=== PATIENT | male | born 1960 | race Caucasian/White ===

== ENCOUNTER 2018-05-25 18:30 | Emergency (ER) | payer BC ==
--- NOTE | 2018-05-25 19:32 | ER Document Report ---
ED General - General Chief Complaint: Head Injury without LOC Stated Complaint: HEAD INJURY Time Seen by Provider: 05/25/18 19:17 TRAVEL OUTSIDE OF THE [place] IN LAST 30 DAYS: No - HPI Notes: Patient is a 57-year-old male that presents to the emergency department for chief complaint of head injury. 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 He is in town from a prolonged stay at [place]. Patient was walking down stairs and tried to get over a dog fence. He slipped and fell forward landing on the right side of his head on a wooden table. He denied any head injury. He states he has some mild pain on his right scalp but denies headache, vision changes, neck pain, numbness and weakness. He has not had any nausea or vomiting. He is not on anticoagulation. He is on immunosuppression medications. He denies any recent illness or fevers. Past Medical History: CLL Past Surgical History: Bone marrow transplant Social History: Denies drugs alcohol and tobacco Family History: Reviewed and noncontributory for presenting illness Allergies: Reviewed, see documented allergy list. REVIEW OF SYSTEMS: CONSTITUTIONAL : No fever No chills No diaphoresis No recent illness EENT: No vision changes No congestion No sore throat CARDIOVASCULAR: No chest pain No palpitations RESPIRATORY: No shortness of breath No cough No difficulty breathing GASTROINTESTINAL: No abdominal pain No nausea No vomiting No diarrhea GENITOURINARY: No dysuria No hematuria No difficulty urinating MUSCULOSKELETAL: No back pain No leg pain No arm pain SKIN: No rashes Scalp laceration LYMPHATIC: No swollen, enlarged glands. NEUROLOGICAL: No lightheadedness No headache No weakness No paresthesias PSYCHIATRIC: No anxiety No depression PHYSICAL EXAMINATION: Vital signs reviewed, nursing noted reviewed. GENERAL: Well-appearing, well-nourished and in no acute distress. HEAD: Left occipital cephalohematoma with overlying laceration, no bleeding, normocephalic. EYES: Eyes appear normal, extraocular movements intact, sclera anicteric, conjunctiva are normal. ENT: nares patent, oropharynx clear without exudates. Moist mucous membranes. NECK: No midline or paraspinal tenderness, normal range of motion, supple without lymphadenopathy LUNGS: Breath sounds clear to auscultation bilaterally and equal. No wheezes rales or rhonchi. HEART: Regular rate and rhythm without murmurs ABDOMEN: Soft, nontender, normoactive bowel sounds. No rebound, guarding, or rigidity. No masses appreciated. EXTREMITIES: Nontender, good range of motion, no pitting or edema. NEUROLOGICAL: No focal neurological deficits. Moves all extremities spontaneously Motor and sensory grossly intact on exam. PSYCH: Normal mood, normal affect. SKIN: Warm, Dry, normal turgor. 2 inch linear left occipital scalp laceration with no active bleeding, underlying cephalhematoma - Related Data Allergies/Adverse Reactions: Penicillins Allergy (Verified 05/25/18 19:18) Past Medical History - Social History Smoking Status: Never Smoker Family History: Reviewed & Not Pertinent Physical Exam - Vital signs Vitals: Temp Pulse Resp BP Pulse Ox 98.1 F 90 20 132/88 H 95 05/25/18 18:56 05/25/18 18:56 05/25/18 18:56 05/25/18 18:56 05/25/18 18:56 Course - Re-evaluation Re-evalutation: 05/25/18 19:59 Vitals reviewed. Nursing notes reviewed. Patient is Nexus criteria negative and not requiring imaging of his cervical spine. CT brain shows no acute intracranial bleeding or pathology. Patient's laceration was repaired with liana. He tolerated procedure well. Patient will follow-up for staple removal in the next 7-10 days with his primary care provider. Because of his i mmunosuppression I did admissions counselor him on signs of infection. Prophylactic antibiotics not indicated because of the vascularity in the scalp and how clean his wound appears with no foreign material. Patient and family in agreement with this plan of care. He was discharged home in stable condition. Head CT 05/25/18 19:23 IMPRESSION: No evidence of calvarial injury or intracranial hemorrhage. EVIDENCE OF ACUTE STROKE: NO. - Vital Signs Vital signs: Temp Pulse Resp BP Pulse Ox 98.1 F 90 20 132/88 H 95 05/25/18 18:56 05/25/18 18:56 05/25/18 18:56 05/25/18 18:56 05/25/18 18:56 Procedures - Laceration/Wound Repair Head Time completed: 19:57 Wound length (cm): 5 Wound's Depth, Shape: Linear Laceration pre-procedure: Sterile PPE donned, Sterile drapes applied, Shur-Clens applied Irrigated w/ Saline (mLs): 250 Wound Repaired With: Liana Number of Sutures: 3 Post-procedure wound care: Other - Bacitracin and bulky dressing applied Post-procedure NV exam normal: Yes Complications: No Discharge - Discharge Clinical Impression: Scalp laceration Qualifiers: Encounter type: initial encounter Qualified Code(s): S01.01XA - Laceration without foreign body of scalp, initial encounter Closed head injury Qualifiers: Encounter type: initial encounter Qualified Code(s): S09.90XA - Unspecified injury of head, initial encounter Condition: Stable Disposition: HOME, SELF-CARE Instructions: Head Injury Precautions ([facility]), Care of Stapled Wounds ([facility]) Additional Instructions: Please return to the emergency department if you have any worsening, or concern of your symptoms. Please return to the emergency department if you develop chest pain, difficulty breathing, severe abdominal pain, or ongoing vomiting. Please follow-up with your primary care physician in 2-3 days and any other recommended physicians. If prescribed, take all medications as directed. If you have any questions or concerns do not hesitate to return the emergency department for evaluation. Have your liana removed in 7-10 days
--- NOTE | 2018-05-25 19:46 | RADIOLOGY REPORT (SQ) ---
EXAM DESCRIPTION: CT HEAD WITHOUT COMPLETED DATE/TIME: 05/25/2018 7:33 pm REASON FOR STUDY: head injury COMPARISON: None. TECHNIQUE: Axial images acquired through the brain without intravenous contrast. Images reviewed wi th bone, brain and subdural windows. Additional sagittal and coronal reconstructions were generated. Images stored on PACS. All CT scanners at this facility use dose modulation, iterative reconstruction, and/or weight based d osing when appropriate to reduce radiation dose to as low as reasonably achievable (ALARA). [facility]: Dose Right [facility]: CareDose [facility]: Dose Right [facility]: Teradose 4D [facility]: Via [employer] RADIATION DOSE: CT Rad equipment meets quality standard of care and radiation dose reduction techniq ues were employed. CTDIvol: 53.2 mGy. DLP: 1044 mGy-cm. mGy. LIMITATIONS: None. FINDINGS: VENTRICLES: Normal size and contour. CEREBRUM: No masses. No hemorrhage. No midline shift. No evidence for acute infarction. Normal gra y/white matter differentiation. No areas of low density in the white matter. CEREBELLUM: No masses. No hemorrhage. No alteration of density. No evidence for acute infarction. EXTRAAXIAL SPACES: No fluid collections. No masses. ORBITS AND GLOBE: No intra- or extraconal masses. Normal contour of globe without masses. CALVARIUM: No fracture. PARANASAL SINUSES: No fluid or mucosal thickening. SOFT TISSUES: No mass or hematoma. OTHER: Surgical clips are seen at the skull base. IMPRESSION: No evidence of calvarial injury or intracranial hemorrhage. EVIDENCE OF ACUTE STROKE: NO. COMMENT: Quality ID # [id number]: Final reports with documentation of one or more dose reduction techniques (e.g., Automated exposure control, adjustment of the mA and/or kV according to patient size, use of iterative reconstruction technique) TECHNICAL DOCUMENTATION: JOB ID: [id number] [email or web address]- All Rights Reserved Reading location - IP/workstation name: [email or web address]
[2018-05-25] MEDS ORDERED: BACITRACIN ZINC OINTMENT 15 GM TP ONE (19:56)
[2018-05-25] MEDS ORDERED: IBUPROFEN 600 MG TABLET PO ONE (19:56)
[2018-05-25 20:22] VITALS: BP 135/79
== END 2018-05-25 21:00 | disposition home or self-care (01) ==
LOC: ER 18:30
DX: S01.01XA Laceration without foreign body of scalp, initial encounter (principal); S09.90XA Unspecified injury of head, initial encounter; W01.0XXA Fall on same level from slipping, tripping and stumbling without subsequent striking against object, initial encounter; Y92.009 Unspecified place in unspecified non-institutional (private) residence as the place of occurrence of the external cause; Z94.89 Other transplanted organ and tissue status
CPT/HCPCS: 99283; 70450; 12002; J3490